=== PATIENT | female | born 1975 ===

== ENCOUNTER 2019-11-16 09:25 | Outpatient (CLI) | payer OTHER | END 2019-11-16 09:52 | disposition home or self-care (01) | LOC: MAMO-SONO 09:25 | DX: Z12.31 Encounter for screening mammogram for malignant neoplasm of breast (principal); Z87.898 Personal history of other specified conditions; N60.19 Diffuse cystic mastopathy of unspecified breast ==

== ENCOUNTER 2020-09-07 11:47 | Outpatient (CLI) | payer OTHER | END 2020-09-07 13:00 | disposition home or self-care (01) | LOC: OFIC 805 11:47 | PROVIDERS: ATTEND Otolaryngology | DX: H61.23 Impacted cerumen, bilateral (principal); H93.8X3 Other specified disorders of ear, bilateral ==

== ENCOUNTER 2020-11-09 14:56 | Outpatient (CLI) | payer OTHER | END 2020-11-09 15:17 | disposition home or self-care (01) | LOC: MAMO-SONO 14:56 | PROVIDERS: ATTEND Obstetrics & Gynecology Maternal & Fetal Medicine | DX: R92.2 Inconclusive mammogram (principal) ==

== ENCOUNTER → 2020-11-13 | Outpatient (CLI) | payer OTHER | END | disposition home or self-care (01) | LOC: OFIC 805 11-06 08:50 | PROVIDERS: ATTEND Otolaryngology | DX: R13.19 Other dysphagia (principal); R07.0 Pain in throat; H92.02 Otalgia, left ear ==

== ENCOUNTER 2021-05-07 07:27 | Outpatient (CLI) | payer OTHER | END 2021-05-07 08:20 | disposition home or self-care (01) | LOC: MAMO-SONO 07:27 | DX: N64.9 Disorder of breast, unspecified (principal) ==